=== PATIENT | female | born 1940 ===

== ENCOUNTER 2021-03-08 05:45 | Day surgery (SDC) | payer OTHER ==
[2021-03-08] MEDS ORDERED: ULTRACET PO (09:12)
[2021-03-08] MEDS ORDERED: MACROBID 100 M100 MG PO (09:12)
== END 2021-03-08 12:20 | disposition home or self-care (01) ==
LOC: CIR.AMB 05:45 → EDBD 11:00 → CIR.AMB 12:20
PROVIDERS: ATTEND Obstetrics & Gynecology Gynecology
DX: N81.3 Complete uterovaginal prolapse (principal); Z20.822 Contact with and (suspected) exposure to COVID-19